=== PATIENT | female | born 1945 | race Caucasian/White ===

== ENCOUNTER 2016-07-01 15:44 | Emergency (ER) | payer OTHER, MEDICARE ==
[2016-07-01 16:08] VITALS: BP 164/89; PULSE 85; RESP 20; TEMP 98.1; O2SAT 91
--- NOTE | 2016-07-01 16:44 | DX ---
Two-View Chest July 01, 2016 Indication: Chest pain and shortness of breath. Comparison: May 27, 2008. Findings: The lungs are severely hypoventilated on the AP film. The heart size is upper limits of n ormal. Elevation of the hemidiaphragm is present on the right mildly increased compared to the Dece 2007 study. Impression: Hypoventilation, with elevation of the right hemidiaphragm.
--- NOTE | 2016-07-01 17:28 | UCPHY ---
H & P Time Seen by Provider: 07/01/16 16:37 Patient Type: New HPI/ROS: This patient presents with a chief complaint of cough, burning upper chest pain and dyspnea on exertion which had been present for the past 2 weeks but have been worse since she stopped her antibiotics 3 days ago. She was seen in early on in her illness and antibiotics were prescribed which seemed to help but now the symptoms have worsened. She has slight sore throat but denies any fever or chills. She admits to some nasal congestion. Smoking Status: Never smoked Physical Exam: This is a very large female who is in no acute distress. She did not cough during my interview. GENERAL: Well-appearing, well-nourished and in no acute distress. HEAD: Atraumatic, normocephalic. EYES: Pupils equal round and reactive to light, extraocular movements intact, sclera anicteric, conjunctiva are normal. ENT: nares patent, oropharynx clear without exudates. Moist mucous membranes. NECK: Normal range of motion, supple without lymphadenopathy or JVD. LUNGS: Breath sounds clear to auscultation bilaterally and equal. No wheezes rales or rhonchi. HEART: Regular rate and rhythm there is a short systolic murmur heard in the parasternal area on the left. No rubs or gallops ABDOMEN: Soft, nontender, normoactive bowel sounds. No guarding, no rebound. No masses appreciated. EXTREMITIES: Normal range of motion, both legs are quite large and firm to the touch but there is no tenderness. The patient says that her legs have not changed recently. Changes are consistent with venous stasis. NEUROLOGICAL: Cranial nerves II through XII grossly intact. Normal speech,. PSYCH: Normal mood, normal affect. SKIN: Warm, dry, normal turgor, no visible rashes or lesions. Constitutional: Initial Vital Signs Temperature (C) 36.7 C 07/01/16 16:03 Heart Rate 85 07/01/16 16:03 Respiratory Rate 20 07/01/16 16:03 Blood Pressure 164/89 H 07/01/16 16:03 O2 Sat (%) 91 L 07/01/16 16:03 O2 Delivery Mode Room Air Allergies/Adverse Reactions: ciprofloxacin [Ciprofloxacin] Allergy (Verified 04/25/12 23:45) floxacillin [Floxacillin] Allergy (Verified 04/25/12 23:45) levofloxacin [From Levaquin] Allergy (Verified 04/25/12 23:45) Sulfa (Sulfonamide Antibiotics) Allergy (Verified 04/25/12 23:45) Home Medications: Medication Instructions Recorded Beta-Carotene(A) W-C & E/Min 1 tab PO DAILY 04/26/12 [Ocuvite] Ibuprofen [Motrin (*)] 800 mg PO BID 04/26/12 Levothyroxine [Synthroid 112 mcg 112 mcg PO DAILY06 04/26/12 (RX)] Olmesartan/Hydrochlorothiazide 1 each PO DAILY 04/26/12 [Benicar Hct 40-12.5 mg Tablet] [place]-3/Dha/Epa/Fish Oil [Fish Oil 2 each PO DAILY PRN 04/26/12 Dr 500 mg Softgel] Oxybutynin Chloride Xl [Ditropan 5 mg PO DAILY 04/26/12 Xl 5mg (*)] Rope Cleaner Completed 04/26/12 04/26/12 Sertraline HCl [Zoloft 50mg (*)] 100 mg PO HS 04/26/12 Verapamil ER [[place] SR/ER 240MG 240 mg PO DAILY8 04/26/12 (*)] WARFARIN SODIUM [COUMADIN] 10 mg PO DAILY@1600 04/26/12 Enoxaparin [Lovenox 150mg (*)] 150 mg SC BID #5 syr 04/29/12 Hydrocodone/APAP 5/325 [[place] 1 - 2 tab PO Q4 PRN #10 tab 04/29/12 5/325 (*)] Levothyroxine [Synthroid 200 mcg 200 mcg PO DAILY06 #30 tab 04/29/12 (*)] Levothyroxine [Synthroid 25 mcg 25 mcg PO DAILY06 #30 tab 04/29/12 (*)] AZITHROMYCIN [Z-PACK] 250 mg PO DAILY #1 packet 07/01/16 Medical Decision Making - Diagnostics Imaging: A chest x-ray shows no changes consistent with pneumonia. There is mild cardiomegaly and the right hemidiaphragm is slightly higher than on a chest x- ray obtained 38 weeks ago. Differential Diagnosis: I do not believe that this patient is seriously ill and do not feel further investigation is necessary at this time. Departure - Departure Disposition: Home, Routine, Self-Care Clinical Impression: Acute bronchitis Qualifiers: Bronchitis organism: unspecified organism Qualifier Code: (J20.9) Acute bronchitis, unspecified Condition: Good Instructions: Acute Bronchitis (ED) Additional Instructions: If your symptoms have not improved in 2 or 3 days you should follow-up with your primary care provider. If the meantime your symptoms worsen you should be seen right away. Referrals: Chung Maldonado MD [Primary Care Provider] - As per Instructions Prescriptions: AZITHROMYCIN [Z-PACK] 250 mg PO DAILY #1 packet - PQRS PQRS Measurement: Not applicable
== END 2016-07-01 17:30 | disposition home or self-care (01) ==
LOC: CED 15:44
DX: J20.9 Acute bronchitis, unspecified (principal)
CPT/HCPCS: 71020; G0463; 99203-PO

== ENCOUNTER 2017-11-24 23:02 | Emergency (ER) | payer OTHER, MEDICARE ==
--- NOTE | 2017-11-24 23:39 | EDPHY ---
H & P Time Seen by Provider: 11/24/17 23:45 HPI/ROS: This patient complains of a feeling of urinary urgency and bladder pressure 6/ 10 intensity with inability to urinate over the past 4-5 hours. She explains that this is in the setting of having constipation for 4-5 days. She complains of 6/10 bladder pressure. She explains it"feels like it is being stretched "however despite attempts to urinate she is unable to. She admits poor hydration and she blames this on her overactive bladder. She purposely dehydrated herself so that she does not have to get up as much at night. She thinks that this decreased hydration caused her constipation. She drank 3 large cups of water realizing her poor hydration recently over the past handful of hours and also took lactulose in an attempt to have a bowel movement. Despite this she has been unable to urinate or have a bowel movement. She notes no other exacerbating factors. Her brought her here by private vehicle for further evaluation of the symptoms. ROS: Constitutional: No fevers or fatigue. GI: She reports no generalized abdominal pain. She still tolerating p.o. Intake despite her constipation. : No recent dysuria. No flank pain. No vaginal discharge. Integumentary: No rash Neuro: No numbness tingling or weakness. She has noticed any urinary incontinence. Musculoskeletal: No back pain. 7 point ROS is otherwise negative. Past Medical/Surgical History: Morbid obesity PE Hypertension Pyelonephritis Overactive bladder Hypothyroidism She denies any prior history of urinary obstruction Social History: No drug use Smoking Status: Never smoked Physical Exam: General Appearance: This is pleasant morbidly obese 72-year-old female Alert, no distress. Eyes: Pupils equal and round no pallor or injection. ENT, Mouth: Mucous membranes moist. Respiratory: There are no retractions, lungs are clear to auscultation. Cardiovascular: Regular rate and rhythm. Gastrointestinal: Morbidly obese with large pannus. Abdomen is soft and nontender, no masses, bowel sounds normal. Back: No CVA tenderness Neurological: GCS 15. She has no focal sensory deficits or lower extremities. Skin: Warm and dry, no rashes. Musculoskeletal: Neck is supple nontender. Extremities are symmetrical, full range of motion. Psychiatric: Mood and affect are normal DIFFERENTIAL DIAGNOSIS: After history and physical exam differential diagnosis was considered for lower urinary obstruction, constipation, fecal impaction, UTI , neurogenic bladder Constitutional: Initial Vital Signs Temperature (C) 36.6 C 11/24/17 23:24 Heart Rate 91 11/24/17 23:24 Respiratory Rate 18 11/24/17 23:24 Blood Pressure 178/90 H 11/24/17 23:24 O2 Sat (%) 90 L 11/24/17 23:24 O2 Delivery Mode Room Air Allergies/Adverse Reactions: ciprofloxacin [Ciprofloxacin] Allergy (Verified 11/24/17 23:17) floxacillin [Floxacillin] Allergy (Verified 11/24/17 23:17) levofloxacin [From Levaquin] Allergy (Verified 11/24/17 23:17) Sulfa (Sulfonamide Antibiotics) Allergy (Verified 11/24/17 23:17) Home Medications: Medication Instructions Recorded Olmesartan/Hydrochlorothiazide 1 each PO DAILY 04/26/12 [Benicar Hct 40-12.5 mg Tablet] Oxybutynin Chloride Xl [Ditropan 5 mg PO DAILY 04/26/12 Xl 5mg (*)] Sertraline HCl [Zoloft 50mg (*)] 100 mg PO HS 04/26/12 Verapamil ER [[place] SR/ER 240MG 240 mg PO DAILY8 04/26/12 (*)] WARFARIN SODIUM [COUMADIN] 10 mg PO DAILY@1600 04/26/12 Enoxaparin [Lovenox 150 MG (*)] 150 mg SC BID #5 syr 04/29/12 Levothyroxine [Synthroid 200 mcg 200 mcg PO DAILY06 #30 tab 04/29/12 (*)] Macrobid 11/24/17 Doxycycline Hyclate [Vibramycin 100 mg PO BID PRN #20 cap 11/25/17 100 MG (*)] MDM/Departure - MDM Diagnostics: Urine dip is normal. Procedures: Fecal disimpaction: Patient is placed in left lateral recumbent position with knees flexed with our nurse Kristy present and after verbal consent proceeded with manual disimpaction encountering of firm stool mass in the rectum that are broke up with gloved finger and lube removing in pieces. Patient had discomfort during this procedure but otherwise tolerated it. There were no complications except mild bleeding from external hemorrhoid. The stool is light brown in color no melena or other concerning findings. ED Course/Re-evaluation: A catheter was placed with only 50 - 100 mL of urine out. This was then removed. After fecal disimpaction the patient had a soapsuds enema with large amount of stool out. She expressed relief. Discussion: Patient here with fecal impaction constipation treatable to poor p.o. Fluid intake. I counseled regarding this. I think that her feeling of urinary urgency was attributable to the fecal impaction stool ball pressing against the bladder. I counseled regarding this. We ruled out UTI. Also, no evidence of significant urinary obstruction given minimal urine out with catheter. - Depart Disposition: Home, Routine, Self-Care Clinical Impression: Fecal impaction Constipation Qualifiers: Constipation type: unspecified constipation type Qualified Code(s): K59.00 - Constipation, unspecified Condition: Good Instructions: Constipation (ED), High Fiber Diet (ED) Additional Instructions: Diagnosis: 1. Fecal impaction 2. Constipation Plan: Colace stool softener-2 day Metamucil tendon 20 g a day Milk a magnesia-30 mL a day MiraLax 17 g 2 times a day [place] oil 1-2 tbsp a day Enemas in addition as needed Follow the above plan until you are having 1 or more bowel movements per day. If you start having loose stools then dropped 1 of these therapies that time starting from the bottom going up for the top the list. Call your primary care physician to arrange follow-up appointment for further evaluation Return for any significant worsening despite the treatment plan Prescriptions: Doxycycline Hyclate [Vibramycin 100 MG (*)] 100 mg PO BID PRN #20 cap PRN Reason: Constipation Referrals: Patient,NotPresent [Primary Care Provider] - As per Instructions
[2017-11-25 02:06] VITALS: BP 172/94
== END 2017-11-25 01:25 | disposition home or self-care (01) ==
LOC: CED 23:02
DX: K59.00 Constipation, unspecified (principal); I10 Essential (primary) hypertension; Z79.01 Long term (current) use of anticoagulants

== ENCOUNTER → 2018-09-28 | Outpatient (CLI) | payer OTHER, MEDICARE | LOC: EMCIMAGING 14:55 → EDSTATUS 15:00 | PROVIDERS: ATTEND Family Medicine | DX: M17.0 Bilateral primary osteoarthritis of knee (principal) | CPT/HCPCS: 73562-PN ==